=== PATIENT | male | born 1970 | race Caucasian/White ===

== ENCOUNTER 2020-11-23 07:23 | Inpatient (IN) | payer BC ==
[~2020-11-23 07:23] MED LIST: Lactated Ringers 1,000 ML IV SCH; Scopolamine 1.5 MG Transdermal Patch TOP SCH; Sodium Chloride 0.9% 10 ML Syringe FLUSH PRN
[2020-11-23] MEDS ORDERED: Lidocaine 1% 4 ML ONE ×2 (07:33→07:34)
[2020-11-23] MEDS ORDERED: Ondansetron 4 MG/2 ML SDV ONE ×2 (07:33→13:38)
[2020-11-23] MEDS ORDERED: Lactated Ringers 1,000 ML ONE ×2 (07:33→13:37)
[2020-11-23] MEDS ORDERED: Rocuronium 50 MG/5 ML Vial ONE ×3 (07:33→12:01)
[2020-11-23] MEDS ORDERED: fentaNYL 250 MCG/5 ML SDV ONE (07:33)
[2020-11-23] MEDS ORDERED: Midazolam 1 MG/ML 2 ML SDV ONE (07:33)
[2020-11-23] MEDS ORDERED: Propofol 200 MG/20 ML SDV ONE ×4 (07:33→11:58)
[2020-11-23] MEDS ORDERED: Dexamethasone 4 MG/ML 5 ML MDV ONE (07:34)
[2020-11-23] MEDS ORDERED: Ketamine 500 mg/10 ML MDV ONE (07:40)
[2020-11-23] MEDS: Lidocaine 1%/Sod Bicarbonate in NS 8.4% 1 ML Syringe IDERM PRN ×2 (07:55→08:00)
[2020-11-23] MEDS ORDERED: Bupivacaine 0.5%/EPINEPHrine 1:200,000 50 ML MDV ONE (08:10)
--- NOTE | 2020-11-23 08:46 | PCM.PREANE ---
Preanesthetic Assessment - Procedure Proposed Procedure: Laparoscopic Partial Fundoplication - Anesthesia/Transfusion/Family Hx Anesthesia History: Prior Anesthesia Reaction Type of Anesthesia Reaction: Excessive Nausea/Vomiting Family History of Anesthesia Reaction: No Transfusion History: No Prior Transfusion(s) - Review of Systems General: No Symptoms Pulmonary: No Symptoms Cardiovascular: No Symptoms Gastrointestinal: Other (GERD, Hiatal Hernia) Neurological: No Symptoms Other: Reports: None (Congenital absence of one kidney), Anxiety (Panic Attachs) - Physical Assessment NPO Status Date: 11/22/20 NPO Status Time: 23:00 Vital Signs: 136/89 141/101 54 96% Weight: 91.2 kg ASA Class: 2 Mental Status: Alert & Oriented x3 Airway Class: Mallampati = 2 Dentition: Reports: Normal Dentition (Crowded. ) ROM/Head Extension: Full Lungs: Clear to Auscultation, Normal Respiratory Effort Cardiovascular: Regular Rhythm, Bradycardia - Lab Values: Reviewed from [facility]. - Imaging/EKG Impressions: Bradycardia at 54 bpm. - Allergies Allergies/Adverse Reactions: Allergies Allergy/AdvReac Type Severity Reaction Status Date / Time sowmya Allergy Other Verified 11/23/20 08:28 - Blood Blood Available: No - Anesthesia Plan Pre-Op Medication Ordered: Anxiolytic, Other (Scopalamine Patch) - Acknowledgements Anesthesia Type Planned: General Anesthesia Pt an Appropriate Candidate for the Planned Anesthesia: Yes Alternatives and Risks of Anesthesia Discussed w Pt/Guardian: Yes Pt/Guardian Understands and Agrees with Anesthesia Plan: Yes PreAnesthesia Questionnaire Cardiovascular History: Reports: Hypertension Respiratory History: Reports: None Gastrointestinal History: Reports: GERD, Hiatal Hernia, Other (See Below) Other Gastrointestinal History: esophagitis, Corona's esophagus, left inguinal hernia with repair, gastritis Genitourinary History: Reports: Other (See Below) Other Genitourinary History: congential absence of 1 kidney RAG SHREDDER History: Reports: None Musculoskeletal History: Reports: None Neurological History: Reports: None Psychiatric History: Reports: Panic Attack Endocrine/Metabolic History: Reports: None Hematologic History: Reports: None Immunologic History: Reports: None Oncologic (Cancer) History: Reports: None Dermatologic History: Reports: None - Infectious Disease History Infectious Disease History: Reports: None - Past Surgical History Head Surgeries/Procedures: Reports: None HEENT Surgical History: Reports: Naso-Sinus Surgery Cardiovascular Surgical History: Reports: None Respiratory Surgical History: Reports: None GI Surgical History: Reports: Colonoscopy, EGD Male Surgical History: Reports: Vasectomy Endocrine Surgical History: Reports: None Neurological Surgical History: Reports: None Musculoskeletal Surgical History: Reports: None Oncologic Surgical History: Reports: None Dermatological Surgical History: Reports: None - SUBSTANCE USE Tobacco Use Status *Q: Never Tobacco User Second Hand Smoke Exposure: No Recreational Drug Use History: No - HOME MEDS Home Medications: Home Meds Esomeprazole Magnesium [Nexium] 40 mg PO DAILY 11/20/20 [History] - CURRENT (IN HOUSE) MEDS Current Meds: Current Medications Lactated Ringer's (Ringers, Lactated) 1,000 mls @ 125 mls/hr IV ASDIRECTED BALTAZAR Stop: 11/23/20 23:00 Last Admin: 11/23/20 08:00 Dose: 125 mls/hr Documented by: Lidocaine/Sodium Bicarbonate (Lidocaine 1%/Sod Bicarbonate In Ns 8.4% 1 Ml Syringe) 0.25 ml IDERM ONETIME PRN PRN Reason: Prior to IV Start Stop: 11/23/20 18:00 Last Admin: 11/23/20 08:00 Dose: 0.25 ml Documented by: Scopolamine (Scopolamine 1.5 Mg Transdermal Patch) 1.5 mg TOP ONETIME BALTAZAR Stop: 11/23/20 18:00 Last Admin: 11/23/20 08:13 Dose: 1.5 mg Documented by: Sodium Chloride (Sodium Chloride 0.9% 10 Ml Syringe) 10 ml FLUSH ASDIRECTED PRN PRN Reason: Keep Vein Open Stop: 11/23/20 18:00 Discontinued Medications Bupivacaine HCl/Epinephrine Bitart (Bupivacaine 0.5%/Epinephrine 1:200,000 50 Ml Mdv) Confirm Administered Dose 50 ml .ROUTE .STK-MED ONE Stop: 11/23/20 08:11 Dexamethasone (Dexamethasone 4 Mg/Ml 5 Ml Mdv) Confirm Administered Dose 20 mg .ROUTE .STK-MED ONE Stop: 11/23/20 07:35 Fentanyl (Fentanyl 250 Mcg/5 Ml Sdv) Confirm Administered Dose 250 mcg .ROUTE .STK-MED ONE Stop: 11/23/20 07:34 Lidocaine HCl (Xylocaine-Mpf 1%) Confirm Administered Dose 4 mls @ as directed .ROUTE .STK-MED ONE Stop: 11/23/20 07:34 Lactated Ringer's (Ringers, Lactated) Confirm Administered Dose 1,000 mls @ as directed .ROUTE .STK-MED ONE Stop: 11/23/20 07:34 Lidocaine HCl (Xylocaine-Mpf 1%) Confirm Administered Dose 4 mls @ as directed .ROUTE .STK-MED ONE Stop: 11/23/20 07:35 Ketamine HCl (Ketamine 500 Mg/10 Ml Mdv) Confirm Administered Dose 500 mg .ROUTE .STK-MED ONE Stop: 11/23/20 07:41 Midazolam HCl (Midazolam 1 Mg/Ml 2 Ml Sdv) Confirm Administered Dose 2 mg .ROUTE .ST-MED ONE Stop: 11/23/20 07:34 Ondansetron HCl (Ondansetron 4 Mg/2 Ml Sdv) Confirm Administered Dose 4 mg .ROUTE .ST-MED ONE Stop: 11/23/20 07:34 Propofol (Propofol 200 Mg/20 Ml Sdv) Confirm Administered Dose 400 mg .ROUTE .ST-MED ONE Stop: 11/23/20 07:34 Propofol (Propofol 200 Mg/20 Ml Sdv) Confirm Administered Dose 200 mg .ROUTE .STK-MED ONE Stop: 11/23/20 07:35 Propofol (Propofol 200 Mg/20 Ml Sdv) Confirm Administered Dose 200 mg .ROUTE .STK-MED ONE Stop: 11/23/20 07:36 Rocuronium Barnard (Rocuronium 50 Mg/5 Ml Vial) Confirm Administered Dose 50 mg .ROUTE .STK-MED ONE Stop: 11/23/20 07:34
[2020-11-23] MEDS: Bupivacaine 0.5%/EPINEPHrine 1:200,000 50 ML MDV ONE ×2 (09:45→13:35)
[2020-11-23] MEDS ORDERED: ceFAZolin 1 GM Vial ONE ×2 (09:47→13:02)
[2020-11-23] MEDS ORDERED: HYDROmorphone 0.5 MG/0.5 ML Syringe IVPUSH PRN ×2 (10:27→15:03)
[2020-11-23] MEDS ORDERED: fentaNYL 100 MCG/2 ML SDV IVPUSH PRN (10:27)
[2020-11-23] MEDS ORDERED: Ondansetron 4 MG/2 ML SDV IVPUSH PRN (10:27)
[2020-11-23] MEDS ORDERED: fentaNYL 100 MCG/2 ML SDV ONE (12:04)
[2020-11-23] MEDS ORDERED: HYDROmorphone 0.5 MG/0.5 ML Syringe ONE (13:37)
--- NOTE | 2020-11-23 14:19 | PCM.POSTAN ---
POST ANESTHESIA ASSESSMENT - MENTAL STATUS Mental Status: Other (Drowsy) - VITAL SIGNS Vital Signs: Last Vital Signs Temp 36.3 C 11/23/20 07:50 Pulse 50 L 11/23/20 08:50 Resp 15 11/23/20 08:50 BP 137/92 H 11/23/20 08:50 Pulse Ox 99 11/23/20 08:50 1359 138/87 76 16 93% - RESPIRATORY Respiratory Status: Respiratory Rate WNL, Airway Patent, O2 Saturation Stable - CARDIOVASCULAR CV Status: Pulse Rate WNL, Blood Pressure Stable - GASTROINTESTINAL GI Status: No Symptoms - PAIN Pain Score: 0 - POST OP HYDRATION Hydration Status: Adequate & Stable
[2020-11-23] MEDS ORDERED: Acetaminophen 325 MG Tab PO PRN (15:03)
[2020-11-23] MEDS ORDERED: Promethazine 25 MG/ML SDV IM PRN (15:03)
--- NOTE | 2020-11-23 15:54 | OR ---
DATE OF OPERATION: 11/23/2020 SURGEON: Edelmira Lew MD PREOPERATIVE DIAGNOSIS: 1. Hiatal hernia. 2. Dysphagia. POSTOPERATIVE DIAGNOSIS: Medium sized hiatal hernia. OPERATION PERFORMED: 1. Laparoscopic hiatal hernia repair and partial fundoplication (Toupet). 2. Intraoperative Esophagogastroscopy ESTIMATED BLOOD LOSS: 25 mL. ANESTHESIA: General endotracheal. COMPLICATIONS: None. NEED FOR ASSISTANCE: Skilled assistance of our nurse practitioner, Ce Krishnamurthy CNP was needed in this case. She assisted with patient preparation prior to procedure, holding retractor during the procedure and incision closure at the end of the procedure. INDICATION AND CONSENT: The patient is a 50-year-old male who has been having issues with gastroesophageal reflux disease with regurgitation for some time now. The patient had troublesome regurgitation especially when supine. This has caused him to wake up in the middle of the night with a bitter taste in his mouth. Because of this, the patient sought help and was evaluated initially by Dr. Hamilton at [facility] with an esophagogastroduodenoscopy that showed medium-sized hiatal hernia but no other significant abnormalities. The patient underwent pH monitoring as well as impedance study. PH monitoring did show evidence for regurgitation that this was pathologic. The patient also had a small hiatal hernia and DeMeester score was 14.5. He had ineffective esophageal motility on esophageal manometry study. Due to these issues, I saw the patient and discussed the management including medical versus surgical. The patient due to severity of his regurgitation requested to have surgical management. We discussed the fact that the patient had esophageal dysmotility. Therefore, I offered him a partial fundoplication with hiatal hernia repair. We discussed risks, benefits, and alternatives, and informed consent was obtained. DESCRIPTION OF PROCEDURE: The patient was taken to the operating room, placed in supine position. General endotracheal anesthesia was induced. A time-out was performed. The patient was padded appropriately, placed in stirrups, and abdomen was prepped and draped in the usual sterile fashion. Preop antibiotics were given. Another time-out was performed prior to the start of the procedure. We began the procedure by placing a Veress needle in the left upper quadrant. Abdomen was insufflated to 15 mmHg. Then, a 5 mm trocar was placed in the left upper quadrant to be able to visualize the abdomen because the patient had prior laparotomy to make sure there were no adhesions before proceeding. The abdomen was inspected. There was no injury to trocar insertion and there were no significant adhesions, especially in the upper abdomen. A 12 mm trocar was placed to the left and superior of the umbilicus and then 2 additional trocars were placed, a 5 mm trocar in the left lateral abdomen and another 5 mm trocar in the right upper quadrant. The left upper quadrant 5 mm trocar was upsized to a 12 mm trocar. Then, subxiphoid incision was made and the liver retractor was placed and held in place with a clamp. The abdomen was once again reinspected. We noted there was a medium sized hiatal hernia with a small amount of stomach into the chest. We began by taking pars flaccida down with LigaSure Impact until the right shannon was encountered. The peritoneum over the right shannon was opened and the peritoneum opening continued around the shannon all the way to the left side. We took down the anterior phrenoesophageal ligament as well as the hiatal hernia sac, care being taken not to enter the pleural space or injure the esophagus. Then, we turned our attention to the left side. Likewise, the hernia sac and esophagus were taken away from the pleural space, again taking care not to injure either one of those structures. Dissection was carried down deep into the mediastinum both anteriorly, to the left and to the right. Then, we turned our attention to the posterior esophagus. This area was dissected, posterior vagus was protected. Platte was placed and then lifted up the adhesions and then the posterior esophagus was taken down with LigaSure Impact both bluntly and with cautery. Once this was done, we were satisfied with esophageal mobilization. There was at least 4 cm of intraesophageal esophagus. Then, we took down the short gastric vessels and entered the lesser curve. The adhesions of the stomach to the anterior pancreas were taken down all the way to mid stomach releasing the fundus and cardia completely so that it is free. Once this was done, we were able to freely move the fundus and the cardia of the stomach. Cardia was passed around and it was passing easily around the esophagus. At this point, we knew we were ready to proceed with a hiatal hernia repair. Using Endo Stitch and 0 Surgidac stitches, hiatal hernia was reapproximated with 3 interrupted stitches, 2 in the [id number] fashion and 1 in the simple stitch. At this point, the esophagus was lying comfortably within the opening of the hiatus without any wall tension. Then, the cardia and the fundus was passed around and a 56 bougie was placed and then a partial fundoplication was placed. Initially, one bite was taken incorporating the muscular layer of the esophagus, the crura, and the fundus of the stomach bilaterally. Two additional stitches were taken just with the seromuscular layer of the esophagus and full- thickness there of the fundus of the stomach. Once this was done, a cm posterior partial wrap was created, the bougie was removed. The posterior fundoplication appeared to be lying well, and intraoperative esophagogastroscopy was performed and the repair appeared to be in good position. Once this was done, the procedure was concluded. Air was suctioned out from the stomach. The scope was taken out. Then, we removed the liver retractor and then the two 12 mm trocar sites were closed in 2 layers at the fascial level with 0 Vicryl stitches using Medardo-Shamar device and skin on all sites was closed in all incisions with 4-0 Monocryl stitches, then Dermabond was applied. This marked the end of the procedure. At the end of the procedure, all instrument, sharps, and sponges were accounted for to be correct x2. The patient will be admitted and observed until he is able to tolerate fluids and able to go home. THELMA /[id number] NEMESIO
[2020-11-23] MEDS: Acetaminophen/HYDROcodone 325-5 MG Tab PO PRN ×2 (16:56→21:10)
[2020-11-23] MEDS: Ondansetron 4 MG/2 ML SDV IVPUSH SCH ×2 (16:56→21:15)
[2020-11-23] MEDS: Lactated Ringers 1,000 ML IV SCH (18:02)
[2020-11-23] MEDS: Famotidine 20 MG/2 ML SDV IVPUSH SCH (21:12)
[2020-11-24] MEDS: Acetaminophen/HYDROcodone 325-5 MG Tab PO PRN ×3 (02:20→12:55)
[2020-11-24] MEDS: Ondansetron 4 MG/2 ML SDV IVPUSH SCH ×2 (02:21→08:17)
[2020-11-24] MEDS: Lactated Ringers 1,000 ML IV SCH (03:42)
[2020-11-24] MEDS ORDERED: Magnesium Sulfate/Water 2 GM/50 ML BAG IV ONE (06:54)
--- NOTE | 2020-11-24 07:21 | PCM.PN ---
- General Info Date of Service: 11/24/20 Admission Dx/Problem (Free Text): Hiatal hernia repair Functional Status: Reports: Pain Controlled, Tolerating Diet (clear), Ambulating, Urinating - Review of Systems General: Reports: No Symptoms HEENT: Reports: No Symptoms Pulmonary: Reports: No Symptoms Cardiovascular: Reports: No Symptoms Gastrointestinal: Reports: No Symptoms Genitourinary: Reports: No Symptoms Musculoskeletal: Reports: No Symptoms - Patient Data Vitals - Most Recent: Last Vital Signs Temp 97.6 F 11/24/20 02:00 Pulse 62 11/24/20 02:00 Resp 14 11/24/20 02:00 BP 133/86 11/24/20 05:09 Pulse Ox 98 11/24/20 02:00 Weight - Most Recent: 93.123 kg I&O - Last 24 Hours: Intake & Output 11/23/20 11/24/20 11/24/20 22:59 06:59 14:59 Intake Total 1450 Output Total 150 900 Balance -150 550 Lab Results Last 24 Hours: Laboratory Results - last 24 hr 11/24/20 11/24/20 Range/Units 04:58 04:58 WBC 13.83 H (4.23-9.07) K/mm3 RBC 4.96 (4.63-6.08) M/mm3 Hgb 14.0 (13.7-17.5) gm/dl Hct 42.7 (40.1-51.0) % MCV 86.1 (79.0-92.2) fl MCH 28.2 (25.7-32.2) pg MCHC 32.8 (32.2-35.5) g/dl RDW Std Deviation 43.6 (35.1-43.9) fL Plt Count 202 (163-337) K/mm3 MPV 10.1 (9.4-12.3) fl Neut % (Auto) 81.7 H (34.0-67.9) % Lymph % (Auto) 8.0 L (21.8-53.1) % Hawkins % (Auto) 9.9 (5.3-12.2) % Eos % (Auto) 0 L (0.8-7.0) Baso % (Auto) 0.1 (0.1-1.2) % Neut # (Auto) 11.30 H (1.78-5.38) K/mm3 Lymph # (Auto) 1.11 L (1.32-3.57) K/mm3 Hawkins # (Auto) 1.37 H (0.30-0.82) K/mm3 Eos # (Auto) 0.00 L (0.04-0.54) K/mm3 Baso # (Auto) 0.01 (0.01-0.08) K/mm3 Manual Slide Review Abnormal smear Sodium 142 (136-145) mEq/L Potassium 4.8 (3.5-5.1) mEq/L Chloride 107 (98-107) mEq/L Carbon Dioxide 25 (21-32) mEq/L Anion Gap 14.8 (5-15) BUN 20 H (7-18) mg/dL Creatinine 1.3 (0.7-1.3) mg/dL Est Cr Clr Drug Dosing 76.27 mL/min Estimated GFR (MDRD) 59 (>60) mL/min BUN/Creatinine Ratio 15.4 (14-18) Glucose 115 H (70-99) mg/dL Calcium 8.3 L (8.5-10.1) mg/dL Phosphorus 3.6 (2.6-4.7) mg/dL Magnesium 1.6 L (1.8-2.4) mg/dL Med Orders - Current: Current Medications Acetaminophen (Acetaminophen 325 Mg Tab) 650 mg PO Q6H PRN PRN Reason: Pain (mild 1-3) Hydrocodone Bitart/Acetaminophen (Acetaminophen/Hydrocodone 325-5 Mg Tab) 1 tab PO Q4H PRN PRN Reason: Pain (moderate 4-6) Last Admin: 11/24/20 02:20 Dose: 1 tab Documented by: Famotidine (Famotidine 20 Mg/2 Ml Sdv) 20 mg IVPUSH BID BALTAZAR Last Admin: 11/23/20 21:12 Dose: 20 mg Documented by: Hydromorphone HCl (Hydromorphone 0.5 Mg/0.5 Ml Syringe) 0.5 mg IVPUSH Q3H PRN PRN Reason: Pain (severe 7-10) Magnesium Sulfate (Magnesium Sulfate In Water 2 Gm/50 Ml) 2 gm in 50 mls @ 25 mls/hr IV ONETIME ONE Stop: 11/24/20 08:53 Ondansetron HCl (Ondansetron 4 Mg/2 Ml Sdv) 4 mg IVPUSH Q6H [facility] Last Admin: 11/24/20 02:21 Dose: 4 mg Documented by: Promethazine HCl (Promethazine 25 Mg/Ml Sdv) 12.5 mg IM Q6H PRN PRN Reason: Nausea Senna/Docusate Sodium (Docusate Sodium/Sennosides 50-8.6 Mg Tab) 1 tab PO BID [facility] Last Admin: 11/23/20 21:10 Dose: 1 tab Documented by: Discontinued Medications Bupivacaine HCl/Epinephrine Bitart (Bupivacaine 0.5%/Epinephrine 1:200,000 50 Ml Mdv) Confirm Administered Dose 50 ml .ROUTE .STK-MED ONE Stop: 11/23/20 08:11 Bupivacaine HCl/Epinephrine Bitart (Bupivacaine 0.5%/Epinephrine 1:200,000 50 Ml Mdv) Confirm Administered Dose 50 ml .ROUTE .STK-MED ONE Stop: 11/23/20 10:06 Last Admin: 11/23/20 13:35 Dose: 30 ml Documented by: Cefazolin Sodium (Cefazolin 1 Gm Vial) Confirm Administered Dose 2 gm .ROUTE .STK-MED ONE Stop: 11/23/20 09:48 Cefazolin Sodium (Cefazolin 1 Gm Vial) Confirm Administered Dose 2 gm .ROUTE .STK-MED ONE Stop: 11/23/20 13:03 Dexamethasone (Dexamethasone 4 Mg/Ml 5 Ml Mdv) Confirm Administered Dose 20 mg .ROUTE .STK-MED ONE Stop: 11/23/20 07:35 Fentanyl (Fentanyl 250 Mcg/5 Ml Sdv) Confirm Administered Dose 250 mcg .ROUTE .STK-MED ONE Stop: 11/23/20 07:34 Fentanyl (Fentanyl 100 Mcg/2 Ml Sdv) 50 mcg IVPUSH Q5M PRN PRN Reason: Pain Stop: 11/23/20 14:00 Fentanyl (Fentanyl 100 Mcg/2 Ml Sdv) Confirm Administered Dose 100 mcg .ROUTE .STK-MED ONE Stop: 11/23/20 12:05 Glycopyrrolate (Glycopyrrolate 0.2 Mg/Ml 2 Ml Syringe) Confirm Administered Dose 0.8 mg .ROUTE .STK-MED ONE Stop: 11/23/20 13:04 Hydromorphone HCl (Hydromorphone 0.5 Mg/0.5 Ml Syringe) 0.5 mg IVPUSH Q10M PRN PRN Reason: Pain (severe 7-10) Stop: 11/23/20 14:00 Hydromorphone HCl (Hydromorphone 0.5 Mg/0.5 Ml Syringe) Confirm Administered Dose 0.5 mg .ROUTE .STK-MED ONE Stop: 11/23/20 13:38 Lactated Ringer's (Ringers, Lactated) 1,000 mls @ 125 mls/hr IV ASDIRECTED [facility] Stop: 11/23/20 23:00 Last Admin: 11/23/20 08:00 Dose: 125 mls/hr Documented by: Lidocaine HCl (Xylocaine-Mpf 1%) Confirm Administered Dose 4 mls @ as directed .ROUTE .STK-MED ONE Stop: 11/23/20 07:34 Lactated Ringer's (Ringers, Lactated) Confirm Administered Dose 1,000 mls @ as directed .ROUTE .STK-MED ONE Stop: 11/23/20 07:34 Lidocaine HCl (Xylocaine-Mpf 1%) Confirm Administered Dose 4 mls @ as directed .ROUTE .STK-MED ONE Stop: 11/23/20 07:35 Lactated Ringer's (Ringers, Lactated) Confirm Administered Dose 1,000 mls @ as directed .ROUTE .STK-MED ONE Stop: 11/23/20 13:38 Lactated Ringer's (Ringers, Lactated) 1,000 mls @ 100 mls/hr IV [facility] Last Admin: 11/24/20 03:42 Dose: 100 mls/hr Documented by: Ketamine HCl (Ketamine 500 Mg/10 Ml Mdv) Confirm Administered Dose 500 mg .ROUTE .STK-MED ONE Stop: 11/23/20 07:41 Lidocaine/Sodium Bicarbonate (Lidocaine 1%/Sod Bicarbonate In Ns 8.4% 1 Ml Syringe) 0.25 ml IDERM ONETIME PRN PRN Reason: Prior to IV Start Stop: 11/23/20 18:00 Last Admin: 11/23/20 08:00 Dose: 0.25 ml Documented by: Midazolam HCl (Midazolam 1 Mg/Ml 2 Ml Sdv) Confirm Administered Dose 2 mg .ROUTE .STK-MED ONE Stop: 11/23/20 07:34 Neostigmine Methylsulfate (Neostigmine Methylsulfate 5 Mg/5 Ml Syringe) Confirm Administered Dose 5 mg .ROUTE .STK-MED ONE Stop: 11/23/20 13:04 Ondansetron HCl (Ondansetron 4 Mg/2 Ml Sdv) Confirm Administered Dose 4 mg .ROUTE .STK-MED ONE Stop: 11/23/20 07:34 Ondansetron HCl (Ondansetron 4 Mg/2 Ml Sdv) 4 mg IVPUSH ONETIME PRN PRN Reason: Nausea/Vomiting Stop: 11/23/20 16:00 Ondansetron HCl (Ondansetron 4 Mg/2 Ml Sdv) Confirm Administered Dose 4 mg .ROUTE .STK-MED ONE Stop: 11/23/20 13:39 Propofol (Propofol 200 Mg/20 Ml Sdv) Confirm Administered Dose 400 mg .ROUTE .STK-MED ONE Stop: 11/23/20 07:34 Propofol (Propofol 200 Mg/20 Ml Sdv) Confirm Administered Dose 200 mg .ROUTE .[employer]-MED ONE Stop: 11/23/20 07:35 Propofol (Propofol 200 Mg/20 Ml Sdv) Confirm Administered Dose 200 mg .ROUTE .[employer]-MED ONE Stop: 11/23/20 07:36 Propofol (Propofol 200 Mg/20 Ml Sdv) Confirm Administered Dose 600 mg .ROUTE .[employer]-MED ONE Stop: 11/23/20 11:59 Rocuronium Martin (Rocuronium 50 Mg/5 Ml Vial) Confirm Administered Dose 50 mg .ROUTE .STK-MED ONE Stop: 11/23/20 07:34 Rocuronium Martin (Rocuronium 50 Mg/5 Ml Vial) Confirm Administered Dose 50 mg .ROUTE .[employer]-MED ONE Stop: 11/23/20 09:52 Rocuronium Martin (Rocuronium 50 Mg/5 Ml Vial) Confirm Administered Dose 50 mg .ROUTE .[employer]-MED ONE Stop: 11/23/20 12:02 Scopolamine (Scopolamine 1.5 Mg Transdermal Patch) 1.5 mg TOP ONETIME BALTAZAR Stop: 11/23/20 18:00 Last Admin: 11/23/20 08:13 Dose: 1.5 mg Documented by: Sodium Chloride (Sodium Chloride 0.9% 10 Ml Syringe) 10 ml FLUSH ASDIRECTED PRN PRN Reason: Keep Vein Open Stop: 11/23/20 18:00 - Exam General: Alert, Oriented, Cooperative Lungs: Clear to Auscultation, Normal Respiratory Effort Cardiovascular: Regular Rate, Regular Rhythm GI/Abdominal Exam: Soft, No Distention, No Abnormal Bruit, Tender (appropriately) - Patient Data Lab Results Last 24 hrs: Laboratory Results - last 24 hr 11/24/20 11/24/20 Range/Units 04:58 04:58 WBC 13.83 H (4.23-9.07) K/mm3 RBC 4.96 (4.63-6.08) M/mm3 Hgb 14.0 (13.7-17.5) gm/dl Hct 42.7 (40.1-51.0) % MCV 86.1 (79.0-92.2) fl MCH 28.2 (25.7-32.2) pg MCHC 32.8 (32.2-35.5) g/dl RDW Std Deviation 43.6 (35.1-43.9) fL Plt Count 202 (163-337) K/mm3 MPV 10.1 (9.4-12.3) fl Neut % (Auto) 81.7 H (34.0-67.9) % Lymph % (Auto) 8.0 L (21.8-53.1) % Hawkins % (Auto) 9.9 (5.3-12.2) % Eos % (Auto) 0 L (0.8-7.0) Baso % (Auto) 0.1 (0.1-1.2) % Neut # (Auto) 11.30 H (1.78-5.38) K/mm3 Lymph # (Auto) 1.11 L (1.32-3.57) K/mm3 Hawkins # (Auto) 1.37 H (0.30-0.82) K/mm3 Eos # (Auto) 0.00 L (0.04-0.54) K/mm3 Baso # (Auto) 0.01 (0.01-0.08) K/mm3 Manual Slide Review Abnormal smear Sodium 142 (136-145) mEq/L Potassium 4.8 (3.5-5.1) mEq/L Chloride 107 (98-107) mEq/L Carbon Dioxide 25 (21-32) mEq/L Anion Gap 14.8 (5-15) BUN 20 H (7-18) mg/dL Creatinine 1.3 (0.7-1.3) mg/dL Est Cr Clr Drug Dosing 76.27 mL/min Estimated GFR (MDRD) 59 (>60) mL/min BUN/Creatinine Ratio 15.4 (14-18) Glucose 115 H (70-99) mg/dL Calcium 8.3 L (8.5-10.1) mg/dL Phosphorus 3.6 (2.6-4.7) mg/dL Magnesium 1.6 L (1.8-2.4) mg/dL Result Diagrams: 11/24/20 04:58 11/24/20 04:58 Sepsis Event Note - Evaluation Sepsis Screening Result: No Definite Risk - Focused Exam Vital Signs: Vital Signs Temp Temp Pulse Pulse Resp BP BP 11/24/20 05:09 133/86 11/24/20 02:00 97.6 F 62 14 161/92 H 11/24/20 01:48 98.2 F 54 L 12 161/92 H 11/23/20 21:26 97.9 F 86 14 152/92 H 11/23/20 20:02 98.3 F 82 87 14 136/85 Pulse Ox 11/24/20 05:09 11/24/20 02:00 98 11/24/20 01:48 99 11/23/20 21:26 97 11/23/20 20:02 95 - Problem List Review Problem List Initiated/Reviewed/Updated: No - My Orders Last 24 Hours: My Active Orders 11/23/20 09:26 Insert Bruno Catheter [Insert Urinary Catheter] [OM.PC] Q24H 11/23/20 15:03 Patient Status [ADT] Routine May Shower [RC] ASDIRECTED Oxygen Therapy [RC] PRN RT Incentive Spirometry [RC] Q1HWA Vital Signs [RC] Q4HR Acetaminophen [TylenoL] 650 mg PO Q6H PRN Acetaminophen/HYDROcodone [Satartia 325-5 MG] 1 tab PO Q4H PRN HYDROmorphone [Dilaudid] 0.5 mg IVPUSH Q3H PRN Promethazine [Phenergan] 12.5 mg IM Q6H PRN Resuscitation Status Routine 11/23/20 15:05 Ambulate [RC] .TID Intake and Output [RC] 04,16 11/23/20 15:15 Ondansetron [Zofran] 4 mg IVPUSH Q6H 11/23/20 21:00 Docusate Sodium/Sennosides [Senna Plus] 1 tab PO BID Famotidine [Pepcid] 20 mg IVPUSH BID 11/24/20 06:54 Magnesium Sulfate/Water [Magnesium Sulfate in Water 2 GM/50 ML] 2 gm in 50 ml IV ONETIME 11/24/20 Lunch Full Liquid Diet [DIET] 11/25/20 05:11 CBC WITH AUTO DIFF [HEME] AM - Assessment Assessment:: POD1 hiatal hernia repair with partial fundoplication - Plan Plan:: - Full liquid diet today - Pain control - ambulate - dc IVF - if doing well, can dc this afternoon.
--- NOTE | 2020-11-24 08:02 | PCM48HPAN ---
Post Anesthesia Note - EVALUATION WITHIN 48HRS OF ANESTHETIC Vital Signs in Normal Range: Yes Patient Participated in Evaluation: Yes Respiratory Function Stable: Yes Airway Patent: Yes Cardiovascular Function Stable: Yes Hydration Status Stable: Yes Pain Control Satisfactory: Yes Nausea and Vomiting Control Satisfactory: Yes Mental Status Recovered: Yes Vital Signs: Last Vital Signs Temp 36.8 C 11/24/20 07:33 Pulse 55 L 11/24/20 07:33 Resp 16 11/24/20 07:33 BP 149/88 H 11/24/20 07:33 Pulse Ox 99 11/24/20 07:33 - COMMENTS/OBSERVATIONS Free Text/Narrative:: no anesthesia complications noted
[2020-11-24] MEDS: Famotidine 20 MG/2 ML SDV IVPUSH SCH (08:17)
--- NOTE | 2020-11-24 14:11 | PCM.DCSUM1 ---
Discharge Summary - Hospital Course Free Text/Narrative:: The patient underwent laparoscopic hiatal hernia repair and posterior partial fundoplication yesterday. He did well overnight, tolerating clears. Today, pain is controlled. He is tolerating fulls and ambulating. He will be discharged home today. He will follow up with me next week. Diagnosis: Stroke: No - Discharge Data Discharge Date: 11/24/20 Discharge Disposition: Home, Self-Care 01 Condition: Good - Referral to Home Health Primary Care Physician: PCP None - Patient Instructions Diet: Full Liquid Diet Activity: No Lifting Over 20 Pounds (for 4 weeks) Driving: Do Not Drive (until off opioid pain medications for 24 hours) Showering/Bathing: May Shower Wound/Incision Care: Keep Operative Site/Wound Site Clean and Dry Notify Provider of: Fever, Increased Pain, Swelling and Redness Other/Special Instructions: - Take Tylenol/Ibuprofen for pain. - If pain becomes severe, take the prescribed opioid pain medications. - If taking opioid pain medications, take stool softeners - Discharge Plan *PRESCRIPTION DRUG MONITORING PROGRAM REVIEWED*: No *COPY OF PRESCRIPTION DRUG MONITORING REPORT IN PATIENT EDUIN: No Prescriptions/Med Rec: Docusate Sodium [Colace 50 MG/5 ML Liquid] 100 mg PO BID 10 Days #200 cup Acetaminophen/HYDROcodone [[place] 325-5 MG] 1 tab PO Q6H PRN 4 Days #16 tablet PRN Reason: Pain (Severe 7-10) Ondansetron [Zofran ODT] 4 mg PO Q6H PRN 5 Days #20 tab.dis PRN Reason: Nausea/Vomiting Home Medications: Home Meds Acetaminophen [Tylenol] 650 mg PO Q6H PRN #0 tablet 11/24/20 [Rx] Acetaminophen/HYDROcodone [[place] 325-5 MG] 1 tab PO Q6H PRN 4 Days #16 tablet 11/24/20 [Rx] Docusate Sodium [Colace 50 MG/5 ML Liquid] 100 mg PO BID 10 Days #200 cup 11/24/20 [Rx] Ondansetron [Zofran ODT] 4 mg PO Q6H PRN 5 Days #20 tab.dis 11/24/20 [Rx] Oxygen Therapy Mode: Room Air Referrals: Edelmira Lew MD [Physician] - 12/04/20 9:30 am (Follow up with Dr. Lew at [facility]. Please arrive to your appointment at 9:30. ) - Discharge Summary/Plan Comment DC Time >30 min.: Yes - Patient Data Vitals - Most Recent: Last Vital Signs Temp 98.1 F 11/24/20 11:20 Pulse 55 L 11/24/20 11:20 Resp 16 11/24/20 11:20 BP 140/76 11/24/20 11:20 Pulse Ox 97 11/24/20 11:20 Weight - Most Recent: 93.123 kg I&O - Last 24 hours: Intake & Output 11/23/20 11/24/20 11/24/20 22:59 06:59 14:59 Intake Total 660 1450 800 Output Total 150 900 Balance 510 550 800 Lab Results - Last 24 hrs: Laboratory Results - last 24 hr 11/24/20 11/24/20 Range/Units 04:58 04:58 WBC 13.83 H (4.23-9.07) K/mm3 RBC 4.96 (4.63-6.08) M/mm3 Hgb 14.0 (13.7-17.5) gm/dl Hct 42.7 (40.1-51.0) % MCV 86.1 (79.0-92.2) fl MCH 28.2 (25.7-32.2) pg MCHC 32.8 (32.2-35.5) g/dl RDW Std Deviation 43.6 (35.1-43.9) fL Plt Count 202 (163-337) K/mm3 MPV 10.1 (9.4-12.3) fl Neut % (Auto) 81.7 H (34.0-67.9) % Lymph % (Auto) 8.0 L (21.8-53.1) % [place] % (Auto) 9.9 (5.3-12.2) % Eos % (Auto) 0 L (0.8-7.0) Baso % (Auto) 0.1 (0.1-1.2) % Neut # (Auto) 11.30 H (1.78-5.38) K/mm3 Lymph # (Auto) 1.11 L (1.32-3.57) K/mm3 [place] # (Auto) 1.37 H (0.30-0.82) K/mm3 Eos # (Auto) 0.00 L (0.04-0.54) K/mm3 Baso # (Auto) 0.01 (0.01-0.08) K/mm3 Manual Slide Review Abnormal smear Sodium 142 (136-145) mEq/L Potassium 4.8 (3.5-5.1) mEq/L Chloride 107 (98-107) mEq/L Carbon Dioxide 25 (21-32) mEq/L Anion Gap 14.8 (5-15) BUN 20 H (7-18) mg/dL Creatinine 1.3 (0.7-1.3) mg/dL Est Cr Clr Drug Dosing 76.27 mL/min Estimated GFR (MDRD) 59 (>60) mL/min BUN/Creatinine Ratio 15.4 (14-18) Glucose 115 H (70-99) mg/dL Calcium 8.3 L (8.5-10.1) mg/dL Phosphorus 3.6 (2.6-4.7) mg/dL Magnesium 1.6 L (1.8-2.4) mg/dL Med Orders - Current: Current Medications Acetaminophen (Acetaminophen 325 Mg Tab) 650 mg PO Q6H PRN PRN Reason: Pain (mild 1-3) Hydrocodone Bitart/Acetaminophen (Acetaminophen/Hydrocodone 325-5 Mg Tab) 1 tab PO Q4H PRN PRN Reason: Pain (moderate 4-6) Last Admin: 11/24/20 12:55 Dose: 1 tab Documented by: Famotidine (Famotidine 20 Mg/2 Ml Sdv) 20 mg IVPUSH BID [facility] Last Admin: 11/24/20 08:17 Dose: 20 mg Documented by: Hydromorphone HCl (Hydromorphone 0.5 Mg/0.5 Ml Syringe) 0.5 mg IVPUSH Q3H PRN PRN Reason: Pain (severe 7-10) Ondansetron HCl (Ondansetron 4 Mg/2 Ml Sdv) 4 mg IVPUSH Q6H [facility] Last Admin: 11/24/20 08:17 Dose: 4 mg Documented by: Promethazine HCl (Promethazine 25 Mg/Ml Sdv) 12.5 mg IM Q6H PRN PRN Reason: Nausea Senna/Docusate Sodium (Docusate Sodium/Sennosides 50-8.6 Mg Tab) 1 tab PO BID [facility] Last Admin: 11/24/20 08:17 Dose: 1 tab Documented by: Discontinued Medications Bupivacaine HCl/Epinephrine Bitart (Bupivacaine 0.5%/Epinephrine 1:200,000 50 Ml Mdv) Confirm Administered Dose 50 ml .ROUTE .STK-MED ONE Stop: 11/23/20 08:11 Bupivacaine HCl/Epinephrine Bitart (Bupivacaine 0.5%/Epinephrine 1:200,000 50 Ml Mdv) Confirm Administered Dose 50 ml .ROUTE .STK-MED ONE Stop: 11/23/20 10:06 Last Admin: 11/23/20 13:35 Dose: 30 ml Documented by: Cefazolin Sodium (Cefazolin 1 Gm Vial) Confirm Administered Dose 2 gm .ROUTE .STK-MED ONE Stop: 11/23/20 09:48 Cefazolin Sodium (Cefazolin 1 Gm Vial) Confirm Administered Dose 2 gm .ROUTE .STK-MED ONE Stop: 11/23/20 13:03 Dexamethasone (Dexamethasone 4 Mg/Ml 5 Ml Mdv) Confirm Administered Dose 20 mg .ROUTE .STK-MED ONE Stop: 11/23/20 07:35 Fentanyl (Fentanyl 250 Mcg/5 Ml Sdv) Confirm Administered Dose 250 mcg .ROUTE .STK-MED ONE Stop: 11/23/20 07:34 Fentanyl (Fentanyl 100 Mcg/2 Ml Sdv) 50 mcg IVPUSH Q5M PRN PRN Reason: Pain Stop: 11/23/20 14:00 Fentanyl (Fentanyl 100 Mcg/2 Ml Sdv) Confirm Administered Dose 100 mcg .ROUTE .STK-MED ONE Stop: 11/23/20 12:05 Glycopyrrolate (Glycopyrrolate 0.2 Mg/Ml 2 Ml Syringe) Confirm Administered Dose 0.8 mg .ROUTE .STK-MED ONE Stop: 11/23/20 13:04 Hydromorphone HCl (Hydromorphone 0.5 Mg/0.5 Ml Syringe) 0.5 mg IVPUSH Q10M PRN PRN Reason: Pain (severe 7-10) Stop: 11/23/20 14:00 Hydromorphone HCl (Hydromorphone 0.5 Mg/0.5 Ml Syringe) Confirm Administered Dose 0.5 mg .ROUTE .STK-MED ONE Stop: 11/23/20 13:38 Lactated Ringer's (Ringers, Lactated) 1,000 mls @ 125 mls/hr IV ASDIRECTED [facility] Stop: 11/23/20 23:00 Last Admin: 11/23/20 08:00 Dose: 125 mls/hr Documented by: Lidocaine HCl (Xylocaine-Mpf 1%) Confirm Administered Dose 4 mls @ as directed .ROUTE .STK-MED ONE Stop: 11/23/20 07:34 Lactated Ringer's (Ringers, Lactated) Confirm Administered Dose 1,000 mls @ as directed .ROUTE .STK-MED ONE Stop: 11/23/20 07:34 Lidocaine HCl (Xylocaine-Mpf 1%) Confirm Administered Dose 4 mls @ as directed .ROUTE .STK-MED ONE Stop: 11/23/20 07:35 Lactated Ringer's (Ringers, Lactated) Confirm Administered Dose 1,000 mls @ as directed .ROUTE .STK-MED ONE Stop: 11/23/20 13:38 Lactated Ringer's (Ringers, Lactated) 1,000 mls @ 100 mls/hr IV ASDIRECTED [facility] Last Admin: 11/24/20 03:42 Dose: 100 mls/hr Documented by: Magnesium Sulfate (Magnesium Sulfate In Water 2 Gm/50 Ml) 2 gm in 50 mls @ 25 mls/hr IV ONETIME ONE Stop: 11/24/20 08:53 Last Admin: 11/24/20 08:19 Dose: 25 mls/hr Documented by: Ketamine HCl (Ketamine 500 Mg/10 Ml Mdv) Confirm Administered Dose 500 mg .ROUTE .STK-MED ONE Stop: 11/23/20 07:41 Lidocaine/Sodium Bicarbonate (Lidocaine 1%/Sod Bicarbonate In Ns 8.4% 1 Ml Syringe) 0.25 ml IDERM ONETIME PRN PRN Reason: Prior to IV Start Stop: 11/23/20 18:00 Last Admin: 11/23/20 08:00 Dose: 0.25 ml Documented by: Midazolam HCl (Midazolam 1 Mg/Ml 2 Ml Sdv) Confirm Administered Dose 2 mg .ROUTE .STK-MED ONE Stop: 11/23/20 07:34 Neostigmine Methylsulfate (Neostigmine Methylsulfate 5 Mg/5 Ml Syringe) Confirm Administered Dose 5 mg .ROUTE .STK-MED ONE Stop: 11/23/20 13:04 Ondansetron HCl (Ondansetron 4 Mg/2 Ml Sdv) Confirm Administered Dose 4 mg .ROUTE .STK-MED ONE Stop: 11/23/20 07:34 Ondansetron HCl (Ondansetron 4 Mg/2 Ml Sdv) 4 mg IVPUSH ONETIME PRN PRN Reason: Nausea/Vomiting Stop: 11/23/20 16:00 Ondansetron HCl (Ondansetron 4 Mg/2 Ml Sdv) Confirm Administered Dose 4 mg .ROUTE .STK-MED ONE Stop: 11/23/20 13:39 Propofol (Propofol 200 Mg/20 Ml Sdv) Confirm Administered Dose 400 mg .ROUTE .STK-MED ONE Stop: 11/23/20 07:34 Propofol (Propofol 200 Mg/20 Ml Sdv) Confirm Administered Dose 200 mg .ROUTE .STK-MED ONE Stop: 11/23/20 07:35 Propofol (Propofol 200 Mg/20 Ml Sdv) Confirm Administered Dose 200 mg .ROUTE .STK-MED ONE Stop: 11/23/20 07:36 Propofol (Propofol 200 Mg/20 Ml Sdv) Confirm Administered Dose 600 mg .ROUTE .STK-MED ONE Stop: 11/23/20 11:59 Rocuronium [place] (Rocuronium 50 Mg/5 Ml Vial) Confirm Administered Dose 50 mg .ROUTE .STK-MED ONE Stop: 11/23/20 07:34 Rocuronium [place] (Rocuronium 50 Mg/5 Ml Vial) Confirm Administered Dose 50 mg .ROUTE .STK-MED ONE Stop: 11/23/20 09:52 Rocuronium [place] (Rocuronium 50 Mg/5 Ml Vial) Confirm Administered Dose 50 mg .ROUTE .STK-MED ONE Stop: 11/23/20 12:02 Scopolamine (Scopolamine 1.5 Mg Transdermal Patch) 1.5 mg TOP ONETIME [facility] Stop: 11/23/20 18:00 Last Admin: 11/23/20 08:13 Dose: 1.5 mg Documented by: Sodium Chloride (Sodium Chloride 0.9% 10 Ml Syringe) 10 ml FLUSH ASDIRECTED PRN PRN Reason: Keep Vein Open Stop: 11/23/20 18:00
== END 2020-11-24 15:07 | disposition home or self-care (01) | DRG 220 ==
LOC: JD.MS 07:23 → OBSVTOIN 15:03 → PREINTOOBSV 16:23
PROVIDERS: ADMIT Surgery; ATTEND Surgery
PROC: 0BQT4ZZ Repair Diaphragm, Percutaneous Endoscopic Approach (ICD-10-PCS; principal; 2020-11-23)
PROC: 0DV44ZZ Restriction of Esophagogastric Junction, Percutaneous Endoscopic Approach (ICD-10-PCS; 2020-11-23)
PROC: 0DJ68ZZ Inspection of Stomach, Via Natural or Artificial Opening Endoscopic (ICD-10-PCS; 2020-11-23)
DX: K44.9 Diaphragmatic hernia without obstruction or gangrene (principal); R13.10 Dysphagia, unspecified; K22.70 Barrett's esophagus without dysplasia; K21.9 Gastro-esophageal reflux disease without esophagitis; I10 Essential (primary) hypertension; F41.9 Anxiety disorder, unspecified; Z98.52 Vasectomy status; Z88.8 Allergy status to other drugs, medicaments and biological substances; Z91.09 Other allergy status, other than to drugs and biological substances
CPT/HCPCS: 00790; 36415; 80048; 83735; 84100; 85025; 94761; A9270-GY; J0690; J1100; J1170; J2250; J2405; J2704; J2710; J3010; J3475; J3490; J7120